=== PATIENT | male | born 1980 | race Caucasian/White ===

== ENCOUNTER 2018-10-05 13:47 | Emergency (ER) | payer MEDICAID, OTHER ==
[~2018-10-05] VITALS: Ht 172.7 cm; Wt 64.0 kg
[2018-10-05] MEDS ORDERED: ONDANSETRON HCL 4MG/2ML INJ IV STA (14:14)
[2018-10-05 14:40] LABS: BASOPHILS % 0.7 % (0.0-2.0); CHLORIDE 99 mEq/L (98-107); EOSINOPHILS % 2.3 % (0.0-5.0); HEMOGLOBIN. 14.4 g/dL (14.0-18.0); LYMPHOCYTES % 41.4 % (20.0-50.0); MEAN CORPUSCULAR HEMOGLOBIN 31.5 pg (28.0-32.0); MEAN CORPUSCULAR VOLUME 92.2 fL (80.0-94.0); MEAN PLATELET VOLUME 8.2 fl (7.4-10.4); MONOCYTES % 7.6 % (2.0-8.0); PLATELET 162 x1000/uL (130-400); RED BLOOD CELL COUNT 4.56 mill/uL (4.7-6.1); RED CELL DISTRIBUTION WIDTH 14.7 % (11.6-14.6)
[2018-10-05 17:42] VITALS: BP 120/82
== END 2018-10-05 17:43 | disposition home or self-care (01) ==
LOC: ER 13:47
DX: F10.229 Alcohol dependence with intoxication, unspecified (principal); E11.65 Type 2 diabetes mellitus with hyperglycemia; Y90.0 Blood alcohol level of less than 20 mg/100 ml
CPT/HCPCS: 36415; 80053; 83690; 85025; 93005; 96374; 99284; J2405